=== PATIENT | male | born 1995 | race Two or more races ===

== ENCOUNTER 2020-04-01 15:45 | Emergency (ER) | payer SELFPAY ==
[~2020-04-01] VITALS: Ht 177.8 cm; Wt 72.7 kg
[2020-04-01 16:05] VITALS: Ht 177.8 cm; Wt 72.7 kg
[2020-04-01 16:40] LABS: HEMOGLOBIN 17.5 g/dL (13.5-17.5); LYMPHOCYTES 20.3 % (15-50); MCV 85.6 fL (80.0-100.0); MEAN PLATELET VOLUME 10.4 fL (7.4-10.4); NEUTROPHILS 71.8 % (40-80); PLATELET COUNT 149 10x3/uL (130-400); RBC 5.84 10x6/uL (4.20-6.10); RDW 11.9 % (11.5-14.5); WBC 5.9 10x3/uL (4.8-10.8)
[2020-04-01 16:48] LABS: CALC OSMOLALITY 272 mosm/kg (275-300); CARBON DIOXIDE 26.9 mmol/L (21.0-32.0); CHLORIDE - SERUM 103 mmol/L (98-107); GLUCOSE 89 mg/dL (74-106); POTASSIUM - SERUM 3.4 mmol/L (3.5-5.1); SODIUM 138 mmol/L (136-145); UREA NITROGEN 8 mg/dL (7-18); eGFR NON AFRICAN AMERICAN > 90 mL/min (90-120)
[2020-04-01 16:54] LABS: ALBUMIN 4.6 g/dL (3.4-5.0); ALKALINE PHOSPHATASE 110 U/L (30-120); ALT (SGPT) 49 U/L (10-68); BILIRUBIN - TOTAL 0.66 mg/dL (0.2-1.3); PROTEIN - SERUM 8.4 g/dL (6.4-8.2)
[2020-04-01] MEDS ORDERED: DECADRON4 MG PO (17:22)
[2020-04-01] MEDS ORDERED: ZPAK PO (17:22)
[2020-04-01] MEDS ORDERED: ZOFRAN ODT4 MG/UDTAB PO (17:22)
[2020-04-01] MEDS ORDERED: PROAIR HFA8.5 G1 INH (17:22)
[2020-04-01] MEDS ORDERED: TESSALON PERLE100 MG PO (17:54)
[2020-04-01 18:47] VITALS: BP 137/81
== END 2020-04-01 18:49 | disposition home or self-care (01) ==
LOC: D.ER 15:45
PROVIDERS: Emergency Medicine
DX: U07.1 COVID-19 (principal); E87.6 Hypokalemia; J18.9 Pneumonia, unspecified organism; R07.9 Chest pain, unspecified; R06.02 Shortness of breath